=== PATIENT | female | born 1950 | race Caucasian/White ===

== ENCOUNTER 2020-05-05 12:30 | Outpatient (RCR) | payer MEDICARE, OTHER, SELFPAY ==
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
--- NOTE | 2020-04-07 10:04 | PTOPEVAL ---
PHYSICAL THERAPY RE-EVALUATION and UPDATED PLAN OF CARE Thank you for referring Uma Mantilla to [facility]. Uma is progressing well towards goals set. She has received initial evaluation plus 2 follow up visits - due to her work schedule. Would like to continue to follow her 1x/wk x 4 wks for further decrease of her R upper quadrant discomfort. Please review, sign, date and return this plan of care YUNI. I agree with and certify that the following plan of care is medically necessary. Referring Physician Date Admitting Provider: Attending Provider: Josep Knowles, Referring Provider: *PT Outpatient Evaluation Start: 03/03/20 11:45 Freq: Status: Active Protocol: Document 04/07/20 09:01 LUZ MARIA (Rec: 04/07/20 10:04 LUZ MARIA [id number]) Therapy Assessment Status Assessment Status Assessment Status Re-evaluation Evaluation Information Problem Subjective Information Uma states that her R Query Text:As Reported By Patient/ shoulder isn't bad but will Family still have some discomfort with movement. Sleep is more interrupted with allergies and sinus drainage than her R shoulder/cervical discomfort. No c/o's discomfort with work activities. Pain Assessment Timing of Pain Assessment Timing of Pain Assessment Assessment Pain Scale Pain Scale Used Numeric (1 - 10) Self Report Pain Assessment Right Neck Reported Pain Level 0 Lowest Pain Intensity 0 Greatest Pain Intensity 5 Pain Score Pain Score 0: Self Report Cervical and Lumbar ROM Cervical ROM Cervical Flexion (0-60) 25 Query Text:Active in Degrees Cervical Extension (0-70) 35 Query Text:Active in Degrees Cervical Lateral Flexion Right (0-50) 30 Query Text:Active in Degrees Cervical Lateral Flexion Left (0-50) 30 Query Text:Active in Degrees Cervical Rotation Right (0-90) 62 Query Text:Active in Degrees Cervical Rotation Left (0-90) 62 Query Text:Active in Degrees Cervical ROM Comments discomfort with rotation R, Upper Extremity Muscle Strength Testing Scapular/Shoulder Right Shoulder Abduction Strength 4 Good Palpation Assessment Palpation Palpation decreased R upper trap tissue tension, P-A mob T3-1 - decreased mobility with mild tenderness, improved mobility and less tenderness C7-4, good lateral segmental mobility C6 -3 - no increased tenderness. Increased [place]
--- NOTE | 2020-05-05 16:08 | PTOPEVAL ---
PHYSICAL THERAPY RE-EVALUATION Thank you for referring Uma Mantilla to [facility] Uma has been seen x 7 visits. The goals associated with her original neck and R upper trapezius pain have met and resolved. However, it now appears that she has R shoulder pain from possible impingement, bursitis, or possibly supraspinatus tear. Treatment for the R shoulder thus far has not been too successful. Referring Uma back to you in regards to the shoulder pain for further follow up. Please advise if you wish for further PT in regards to the R shoulder pain. If further PT is desired, I will forward you a new plan of care. If not, this note will be considered a discharge summary. I agree with and certify that the following plan of care is medically necessary. Referring Physician Date Admitting Provider: Attending Provider: Josep Knowles, Referring Provider: *PT Outpatient Evaluation Start: 03/03/20 11:45 Freq: Status: Active Protocol: Document 05/05/20 12:35 LUZ MARIA (Rec: 05/05/20 13:37 LUZ MARIA [id number]) Therapy Assessment Status Assessment Status Assessment Status Re-evaluation Evaluation Information Problem Subjective Information Uma reports today her R Query Text:As Reported By Patient/ shoulder is feeling better but Family earlier this week increased R shoulder pain. Increased difficulty getting clothes out of the washer - unable to reach down into bottom of tub. Will also find that needs to use L UE for sweeping, dust mopping due to R shoulder pain . Pain Assessment Timing of Pain Assessment Timing of Pain Assessment Assessment Pain Scale Pain Scale Used Numeric (1 - 10) Self Report Pain Assessment Right Shoulder(s) Reported Pain Level 3 Pain Description Aching,Soreness,Tender on Palpation Lowest Pain Intensity 2 Greatest Pain Intensity 7 Right Neck Reported Pain Level 3 Pain Score Pain Score 3,3: Self Report Cervical and Lumbar ROM Cervical ROM Cervical Flexion (0-60) 35 Query Text:Active in Degrees Cervical Extension (0-70) 40 Query Text:Active in Degrees Cervical Lateral Flexion Right (0-50) 35 Query Text:Active in Degrees Cervical Lateral Flexion Left (0-50) 40 Query Text:Active in Degrees Cervical Rotation Right (0-90) 65 Query Text:Active in Degrees Cervical Rotation Left (0-90) 55 Query Text:Active in Degrees Cervical ROM Comments no c/o's discomfort with cervical AROM Upper Extremity Range of Motion Scapular/ Shoulder Range of Motion Bilateral
== END 2020-05-24 14:29 | disposition home or self-care (01) ==
LOC: ANHHIPT 12:30
PROVIDERS: PCP Internal Medicine; Visit Provider Internal Medicine
DX: M25.511 Pain in right shoulder (principal)
CPT/HCPCS: 97110; 97140; 97162